=== PATIENT | male | born 1940 | race African-American/Black ===

== ENCOUNTER 2022-09-18 17:43 | Emergency (ER) | payer BC ==
[~2022-09-18] VITALS: Ht 177.8 cm; Wt 80.0 kg
[2022-09-18 18:00] VITALS: BP 135/80
[2022-09-18 18:47] LABS: BASOPHILS % 0.2 % (0.0-2.0); EOSINOPHILS % 0.7 % (0.0-5.0); HEMATOCRIT. 35.1 % (42.0-52.0); HEMOGLOBIN. 11.9 g/dL (14.0-18.0); LYMPHOCYTES % 19.7 % (20.0-50.0); MEAN CORPUSCULAR HEMOGLOBIN 32.5 pg (28.0-32.0); MEAN CORPUSCULAR VOLUME 96.1 fL (80.0-94.0); MONOCYTES % 8.4 % (2.0-8.0); PLATELET 137 x1000/uL (130-400); RED BLOOD CELL COUNT 3.66 mill/uL (4.7-6.1); RED CELL DISTRIBUTION WIDTH 12.4 % (11.6-14.6)
[2022-09-18 18:57] LABS: CHLORIDE 106 mEq/L (98-107)
[2022-09-18] MEDS ORDERED: LORAZEPAM 2MG/ML CPJ IV ONE ×2 (19:15→20:00)
== END 2022-09-18 20:13 | disposition left against medical advice (07) ==
LOC: ER 17:43
DX: R29.810 Facial weakness (principal); G45.9 Transient cerebral ischemic attack, unspecified; F03.90 Unspecified dementia, unspecified severity, without behavioral disturbance, psychotic disturbance, mood disturbance, and anxiety; E11.9 Type 2 diabetes mellitus without complications; I10 Essential (primary) hypertension
CPT/HCPCS: 36415; 71045; 80053; 83880; 84484; 85025; 93005; 99285; J2060